=== PATIENT | female | born 1995 | race Caucasian/White ===

== ENCOUNTER 2017-07-28 00:42 | Emergency (ER) | payer MEDICAID, SELFPAY ==
[2017-07-28 00:45] VITALS: BP 182/98; PULSE 116; RESP 18; TEMP 36.7; O2SAT 95; BMI 30.2
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
[2017-07-28 02:04] VITALS: BP 154/61; PULSE 101; O2SAT 99
--- NOTE | 2017-07-28 06:33 | ED.RN ---
release of medical records faxed over from [facility] at this time for medical records from patients ER visit
== END 2017-07-28 02:16 | disposition home or self-care (01) ==
PROVIDERS: Emergency Provider Emergency Medicine; Family Provider Family Medicine; PCP Family Medicine
DX: Z00.00 Encounter for general adult medical examination without abnormal findings (principal); E03.9 Hypothyroidism, unspecified
CPT/HCPCS: 99284

== ENCOUNTER 2022-01-15 19:18 | Emergency (ER) | payer MEDICAID, SELFPAY ==
[2022-01-15 19:19] VITALS: BP 103/81; PULSE 76; RESP 18; TEMP 36.2; O2SAT 99; BMI 28.8
--- NOTE | 2022-01-15 19:48 | ED.RN ---
PATIENT LEFT BECAUSE F THE WAIT.
== END 2022-01-15 19:39 | disposition left against medical advice (07) ==
LOC: ED 19:55
PROVIDERS: PCP Family Medicine
DX: Z53.21 Procedure and treatment not carried out due to patient leaving prior to being seen by health care provider (principal)